=== PATIENT | male | born 1945 | race Hispanic/Latino ===

== ENCOUNTER → 2024-06-04 | Emergency (ER) | payer BC, MEDICARE ==
[~2024-06-04] VITALS: Ht 172.7 cm; Wt 86.2 kg
[~2024-06-04] MED LIST: ALBUTEROL 0.083% 2.5 MG/3 ML INH IH SCH; DOXYCYCLINE 100MG+NS 250ML IV SCH; ENOXAPARIN SODIUM 40 MG/0.4 ML SYRINGE SQ SCH; FAMOTIDINE 20MG VIAL IV SCH; INSULIN humuLIN R 100 UNIT/ML 3ML SQ SCH; IpraTROPium 0.5 MG/2.5 ML INH IH SCH; LACTULOSE 20 GM/30 ML UDCUP PO PRN; TEMAZepam 15 MG CAPSULE PO PRN; acetaMINOPHEN 325 MG TAB PO PRN; acetaMINOPHEN 650 MG SUPPOSITORY RC PRN; cefTRIAXone 1G VIAL IVP SCH; doCUSate SODIUM 100 MG CAP PO PRN; hydrALAZine 20MG/ML VIAL IV PRN; ondanSETRON 4MG INJ IVP PRN
[2024-06-04 16:50] VITALS: TEMP 98.3
--- NOTE | 2024-06-04 16:53 | ERN ---
ED Note History of Present Illness Stated Complaint: CHEST PAIN AND UPPER AIRWAY CONGESTION Chief Complaint: Chest Pain Time Seen by MD: 16:42 Dictation: PATIENT IS A 78-YEAR-OLD MALE COMING IN TODAY WITH COARSE BILATERAL BREATH SOUNDS AND SHORTNESS BREATH HE HAS HAD FOR 2-3 DAYS. NO FEVER NO CHILLS NO NAUSEA VOMITING. PATIENT STATES HE HAS A HISTORY OF CHF AND ATRIAL FIBRILLATION. DENIES ANY HISTORY OF STENTS OR BYPASS. Allergies: Coded Allergies: No Known Drug Allergies (Unverified Allergy, Unknown, 06/04/24) Past Medical History Past Medical History: A-Fib, CHF Surgical History: Other RN Note Reviewed/Agreed w/PFSH: Yes Review of System Dictation CONSTITUTIONAL: NEGATIVE EXCEPT FOR HPI HEAD/FACE: NEGATIVE EXCEPT FOR HPI EENT: NEGATIVE EXCEPT FOR HPI RESPIRATORY: NEGATIVE EXCEPT FOR HPI SOB GASTROINTESTINAL/ABDOMINAL: NEGATIVE EXCEPT FOR HPI GENITOURINARY: NEGATIVE EXCEPT FOR HPI MUSCULOSKELETAL: NEGATIVE EXCEPT FOR HPI INTEGUMENTARY: NEGATIVE EXCEPT FOR HPI NEUROLOGICAL/PSYCH: NEGATIVE EXCEPT FOR HPI HEMATOLOGIC/LYMPHATIC: NEGATIVE EXCEPT FOR HPI ALL SYSTEMS NEGATIVE, EXCEPT NOTED ABOVE. 13 POINT REVIEW OF SYSTEMS ASSESSED AND ALL NEGATIVE EXCEPT FOR ABOVE. Initial Vital Sign VS Vital Signs Date Time Temp Pulse Resp B/P (MAP) Pulse Ox O2 Delivery O2 Flow Rate FiO2 06/04/24 16:42 99.0 98 24 147/87 70 Room Air 0 06/04/24 17:10 60 Physical Exam Dictation VITAL SIGNS REVIEWED GENERAL APPEARANCE: ALERT, ORIENTED X 3, MODERATE ACUTE DISTRESS, WELL DEVELOPED, NOURISHED. HEAD AND FACE: NON-TRAUMATIC. EYES: PERRL, PINK CONJUNCTIVAS, EYELID NO TRAUMA, ANTERIOR CHAMBER WITH ARCUS SENILIS. EARS: PINNAS INTACT AND NO SIGNS OF TRAUMA OR ERYTHEMA EAR CANALS CLEAR AND NO DISCHARGE TM NO ERYTHEMA NOSE: NO DISCHARGE, NO BLEEDING. OROPHARYNX: MOUTH NORMAL, TONGUE PINK, PHARYNX CLEAR,NO ERYTHEMA, TONSILS NO EXUDATES, NO ABSCESSES NOTED, MUCOUS MEMBRANE MOIST NECK: SUPPLE, NON-TENDER, NO THYROMEGALY, NO MASSES, NO JVD, NO BRUITS BREAST:DEFERRED CHEST:NO TENDERNESS, NO CREPITUS, NO PARADOXICAL MOVEMENT, NO RETRACTIONS LUNGS: COARSE RALES NOTED TO BASES BILATERALLY NO WHEEZING. PATIENT TACHYPNEIC HEART: REGULAR RATE, REGULAR RHYTHM, NO MURMUR, NO GALLOPS VASCULAR: 3+ PERIPHERAL EDEMA LOWER EXTREMITIES TO KNEES. ABDOMEN: SOFT, POSITIVE BOWEL SOUNDS, NONDISTENDED, NO GUARDING, NONTENDER, NO REBOUND, NO MASSES NO HEPATOMEGALY, NO SPLENOMEGALY, NO OCAMPO'S SIGN, NO HERNIAS. RECTAL: DEFERRED GENITAL: DEFERRED NEUROLOGICAL: NORMAL SPEECH, MOTOR FUNCTION INTACT, SENSORY FUNCTION INTACT MUSCULOSKELETAL: NECK NONTENDER, FULL RANGE OF MOTION, BACK NONTENDER, FULL RANGE OF MOTION, EXTREMITIES: NONTENDER, FULL RANGE OF MOTION SKIN: COLOR PINK, DRY, NO TURGOR, NO RASH, NO LACERATIONS, NO ABRASIONS, NO CONTUSIONS. LYMPHATIC: DEFERRED Results (Laboratory/Radiology) Laboratory/Radiology Laboratory Tests Test 06/04/24 16:55 06/04/24 17:00 06/04/24 17:07 White Blood Count 9.6 K/uL (4.8-10.8) Red Blood Count 4.17 MIL/uL (4.50-6.20) L Hemoglobin 11.7 g/dL (14.0-18.0) L Hematocrit 37.1 % (42-54) L Mean Corpuscular Volume 89.0 fL (79-99) Mean Corpuscular Hemoglobin 28.1 pg (27.0-33.0) Mean Corpuscular Hemoglobin Concent 31.5 g/dL (32.0-36.0) L Red Cell Distribution Width 15.1 % (11.0-15.5) Platelet Count 177 K/uL (130-400) Mean Platelet Volume 11.7 fL (7.5-10.5) H Immature Granulocyte % (Auto) 0.5 % (0-1) Neutrophils (%) (Auto) 75.0 % (40.0-77.0) Lymphocytes (%) (Auto) 18.0 % (21.0-51.0) L Monocytes (%) (Auto) 6.3 % (3.0-13.0) Eosinophils (%) (Auto) 0.0 % (0.0-8.0) Basophils (%) (Auto) 0.2 % (0.0-5.0) Neutrophils # (Auto) 7.2 K/uL (1.8-7.7) Lymphocytes # (Auto) 1.7 K/uL (1.0-4.8) Monocytes # (Auto) 0.6 K/uL (0.1-1.0) Eosinophils # (Auto) 0.00 K/uL (0.00-0.70) Basophils # (Auto) 0.02 K/uL (0.00-0.20) Absolute Immature Granulocyte (auto 0.05 K/uL (0-1) Nucleated Red Blood Cells 0.0 % (0.0-0.19) Sodium Level 138 mmol/L (136-145) Potassium Level 3.9 mmol/L (3.5-5.1) Chloride Level 98 mmol/L (101-111) L Carbon Dioxide Level 28 mmol/L (21-32) Blood Urea Nitrogen 20 mg/dL (7-18) H Creatinine 1.6 mg/dL (0.5-1.3) H Glomerular Filtration Rate Calc 44 mL/min (>90) Random Glucose 216 mg/dL (70-105) H Lactic Acid Level 3.0 mmol/L (0.8-2.5) H Total Calcium 8.9 mg/dL (8.5-10.1) Magnesium Level 1.50 mg/dL (1.80-2.40) L Troponin I High Sensitivity 54 ng/L (4-75) B-Type Natriuretic Peptide 1570 pg/mL (0-100) H SARS-CoV-2 Antigen (Rapid) PRESUMPTIVE NEGATIVE Blood Gas Specimen Type Arterial Arterial Blood pH 7.373 (7.350-7.450) Arterial Blood Partial Pressure CO2 40 mmHg (35-48) Arterial Blood Partial Pressure O2 81.4 mmHg (83.0-108.0) L Arterial Blood HCO3 22.5 mmol/L (21.0-28.0) Arterial Blood Oxygen Saturation 95.2 % (94.0-98.0) Arterial Blood Base Excess -2.4 mmol/L (-2.0-3.0) L Hemoglobin (Blood Gas) 12.1 g/dL (13.5-17.5) L Sodium (Blood Gas) 134 MMOL/L (136-145) L Bedside Potassium (Blood Gas) 4.0 MMOL/L (3.4-4.5) Bedside Chloride (Blood Gas) 98 MMOL/L (98-107) Bedside Glucose (Blood Gas) 223 MG/DL (65-95) H Bedside Ionized Calcium (Blood Gas) 1.13 MMOL/L (1.15-1.33) L Bedside Lactic Acid (Blood Gas) 1.54 MMOL/L (0.36-0.75) H Blood Gas Temperature 37.0 CELSIUS (35.5-37.0) Blood Gas Respiration Rate 16.0 min. Blood Gas Vent Mode BIPAP 12,6 (ROOM AIR) FiO2 60.0 % Blood Gas Specimen Comment JOANN MALONERN Labs Reviewed?: Yes EKG Comment: EKG SINUS RHYTHM/HEART RATE 81/WV INTERVAL 225 MILLISECOND/RIGHT BUNDLE BRANCH BLOCK NONSPECIFIC ST CHANGES V1 V2 ED Course ED Course Orders Procedure Category Date Status Time Covid19 (Sars Antigen LAB 06/04/24 Complete Rapid) 16:48 Furosemide 100mg Vial PHA 06/04/24 Complete (Lasix 100mg Vial) 17:00 Cbc With Differential LAB 06/04/24 Complete 16:48 B-Type Natriuretic LAB 06/04/24 Complete Peptide 16:48 Chest 1vw RAD 06/04/24 Resulted 16:48 12 Lead Ekg Tracing- EKG 06/04/24 Logged Technical 16:48 Magnesium LAB 06/04/24 Complete 16:48 Troponin I High LAB 06/04/24 Complete Sensitivity 16:48 Basic Metabolic Panel LAB 06/04/24 Complete 16:48 Blood Cult CARLOS 06/04/24 In Process 16:55 Lactic Acid LAB 06/04/24 Complete 16:55 Arterial Blood Gas + RT 06/04/24 Transmitted 17:03 Arterial Blood Gas LAB 06/04/24 Complete Arterial + 17:07 Ceftriaxone 2gm Vial PHA 06/04/24 Complete (Rocephin 2gm Inj) 17:20 Azithromycin 500mg+Ns PHA 06/04/24 Complete 250ml (Azithromyci 17:20 Albuterol 0.083% PHA 06/04/24 Complete 2.5mg/3ml (Proventil 18:00 0.9% Nacl 500ml PHA 06/04/24 Complete Iv.Soln (Ns 500ml 18:00 Edm Admit Bridge Order ADM 06/04/24 Verified 18:19 Current Medications Medications (Trade) Dose Ordered Sig/Gail Route PRN Reason Start Time Stop Time Status Last Admin Dose Admin Albuterol Sulfate (Proventil 0.083% 2.5mg/3ml) 5 mg ONCE ONCE IH 06/04/24 18:00 06/04/24 18:01 DC Azithromycin 250 ml @ 250 mls/hr ONCE STAT IVPB 06/04/24 17:20 06/04/24 18:19 DC 06/04/24 17:27 Ceftriaxone Sodium (Rocephin 2gm Inj) 2 gm ONCE STAT IVPB 06/04/24 17:20 06/04/24 17:24 DC 06/04/24 17:27 Furosemide (LASix 100MG VIAL) 80 mg ONCE ONCE IVP 06/04/24 17:00 06/04/24 17:01 DC 06/04/24 16:57 Sodium Chloride 500 ml @ 0 mls/hr ONCE ONCE IV 06/04/24 18:00 06/04/24 18:01 DC Vital Signs Date Time Temp Pulse Resp B/P (MAP) Pulse Ox O2 Delivery O2 Flow Rate FiO2 06/04/24 17:10 98 27 60 06/04/24 16:42 99.0 98 24 147/87 70 Room Air 0 1800/SENT ON BIPAP. HEART RATE IS CONTROLLED. PATIENT'S RESPIRATIONS MARKEDLY IMPROVED AFTER TREATMENT WITH ANTIBIOTICS, LASIX AND ALBUTEROL. LACTIC ACID 3.0. NORMAL SALINE LIMITED TO 500 ML SECONDARY TO PATIENT IN CONGESTIVE HEART FAILURE BNP IS 15 40.\ \ 1820/SPOKE WITH [facility] HOSPITALIST REVIEWED CHEST X-RAY EKG LABS AND INTERVENTIONS FOR RESPIRATORY FAILURE TO INCLUDE BIPAP, ROCEPHIN/AZITHROMYCIN/ALBUTEROL FOR BILATERAL PNEUMONIA. HEART Score Response (Comments) Value Age: > 65yrs (+2) 2 Risk Factors: 1-2 risk factors (+1) 1 Initial Troponin: Normal limit (0) 0 Total 3 Medical Decision Making MDM MDM: DIFFERENTIAL DIAGNOSIS: PNEUMONIA/BRONCHITIS/CHF EXACERBATION/RENAL FAILURE RATIONALE: TESTS CONSIDERED AND ORDERED SECONDARY TO SHARED DECISION MAKING INCLUDE: LABS, ECG AND RADIOLOGY PREVIOUS OUTSIDE RECORDS REVIEWED: OLD ER VISITS. RISK OF COMPLICATION AND/OR MORBIDITY OR MORTALITY OF PATIENT MANAGEMENT: MODERATE MEDICATIONS-PER MEDICATION RECONCILIATION NEED FOR HOSPITALIZATION: PATIENT DOES MEET CRITERIA FOR HOSPITALIZATION. PATIENT WILL NEED RESPIRATORY SUPPORT, IV ANTIBIOTICS, CARDIAC CONSULTATION FOR ACUTE CHF EXACERBATION NEED FOR EMERGENCY MAJOR/MINOR SURGERY: NO THERE ARE NO SOCIAL CONCERNS WITH THIS PATIENT. PRESCRIPTION DRUG MANAGEMENT PRESCRIPTIONS WILL INCLUDE SYMPTOMATIC CARE PATIENT'S PRIOR EXTERNAL MEDICAL RECORDS FROM OTHER ER VISITS WERE REVIEWED BY ME INDICATED. PRIOR TESTING AND RESULTS FROM PREVIOUS VISITS WERE REVIEWED. PRIOR TESTS WERE TAKEN INTO ACCOUNT WITH MEDICAL DECISION MAKING AND RESOURCE UTILIZATION, INDEPENDENT HISTORIAN/HISTORIANS WERE USED TO OBTAIN COMPLETE MEDICAL HISTORY. I INDEPENDENTLY INTERPRETED THE TEST THAT WERE PERFORMED, RESULTS WERE REVIEWED BY ME AND CONSIDERED FINDINGS ON RADIOLOGY IF ORDERED. MEDICAL MANAGEMENT AND EXAMINATION INTERPRETATION DISCUSSIONS WERE HAD BY ME WITH OTHER QUALIFIED HEALTHCARE PROFESSIONALS INDICATED FOR THE PATIENT'S CARE. DX & DISP Disposition: Inpatient Decision to Admit Time: 18:10 Departure Impression: Primary Impression: Pneumonia of both lower lobes Additional Impressions: Acute kidney injury, Uncontrolled diabetes mellitus, Hypoxemia, Acute exacerbation of CHF (congestive heart failure), Sepsis, Hypomagnesemia Condition: Stable Time of Disposition: 18:10 I have reviewed the case, and I agree with, Diagnosis and Plan JAYLYN RIVERA NP Jun 04, 2024 16:52
[2024-06-04] MEDS: furoSEMIDE 100MG VIAL 10 MG/ML VIAL IVP ONE (16:57)
[2024-06-04 17:09] LABS: ABG BASE EXCESS -2.4 mmol/L (-2.0-3.0); ABG HCO3 22.5 mmol/L (21.0-28.0); ABG OXYGEN SATURATION 95.2 % (94.0-98.0); ABG PCO2 40 mmHg (35-48); ABG PH 7.373 (7.350-7.450); CARBON MONOXIDE 0.3 % (0.5-1.5); HHb 4.8; PO2, ARTERIAL BG 81.4 mmHg (83.0-108.0); VENT MODE, BG BIPAP 12,6 (ROOM AIR)
[2024-06-04 17:10] VITALS: PULSE 98; RESP 27; O2SAT 97
[2024-06-04 17:12] LABS: BASOPHILS # (AUTO) 0.02 K/uL (0.00-0.20); BASOPHILS % (AUTO) 0.2 % (0.0-5.0); HEMATOCRIT 37.1 % (42-54); IMMATURE GRANULOCYTE ABSOLUTE 0.05 K/uL (0-1); LYMPHOCYTES # (AUTO) 1.7 K/uL (1.0-4.8); MEAN CORPUSCULAR HEMOGLOBIN 28.1 pg (27.0-33.0); MEAN CORPUSCULAR HGB CONC 31.5 g/dL (32.0-36.0); MONOCYTES # (AUTO) 0.6 K/uL (0.1-1.0); MONOCYTES % (AUTO) 6.3 % (3.0-13.0); NEUTROPHILS # (AUTO) 7.2 K/uL (1.8-7.7); PLATELET COUNT (AUTO) 177 K/uL (130-400); RED BLOOD CELL COUNT(AUTO) 4.17 MIL/uL (4.50-6.20); RED CELL DISTRIBUTION WIDTH 15.1 % (11.0-15.5); WHITE BLOOD COUNT (AUTO) 9.6 K/uL (4.8-10.8)
[2024-06-04 17:22] LABS: CREATININE 1.6 mg/dL (0.5-1.3); MAGNESIUM 1.5 mg/dL (1.80-2.40); POTASSIUM 3.9 mmol/L (3.5-5.1)
[2024-06-04] MEDS: AZITHROMYCIN 500MG+NS 250ML 250 ML IVPB STA (17:27)
[2024-06-04] MEDS: CEFTRIAXONE 2GM VIAL IVPB STA (17:27)
--- NOTE | 2024-06-04 17:33 | HMCIMG ---
PORTABLE CHEST RADIOGRAPH INDICATION: SHORTNESS A BREATH COMPARISON: 04/14/2011 FINDINGS: Heart size is normal. The pulmonary vascularity and breezy appear normal. Bilateral lower lung opacities. No significant pleural effusion noted. No pneumothorax detected. IMPRESSION: Findings suggesting bilateral lower lung pneumonia. Follow-up chest radiograph is advised in order to ensure resolution.
[2024-06-04 17:40] LABS: B-TYPE NATRIURETIC PEPTIDE 1570 pg/mL (0-100)
[2024-06-04 18:45] VITALS: PULSE 69; RESP 29; O2SAT 98
[2024-06-04 18:47] VITALS: PULSE 69; RESP 29
[2024-06-04] MEDS: ALBUTEROL 0.083% 2.5 MG/3 ML INH IH ONE (18:47)
[2024-06-04] MEDS: 0.9% NACL 500ML IV.SOLN 500 ML IV ONE (18:49)
[2024-06-04 19:00] VITALS: BP 132/60; PULSE 72; RESP 16; O2SAT 98
--- NOTE | 2024-06-04 19:23 | HP ---
[facility] HISTORY AND PHYSICAL Date of Service: Jun 04, 2024 Time of Service: 19:23 HISTORY OF PRESENT ILLNESS: [ ] REVIEW OF SYSTEMS CONSTITUTIONAL: Denies fevers, chills, or night sweats. No unintentional weight loss reported. NEUROLOGICAL: Denies headache, amaurosis fugax, motor weakness, sensory deficit, vertigo/spinning sensation, gait abnormalities, or tremors. ENT: No hearing loss, otalgia, otorrhea, rhinitis, rhinorrhea, hoarseness, or sore throat. CARDIOVASCULAR: Denies any exertional angina, dyspnea on exertion, orthopnea, paroxysmal nocturnal dyspnea, palpitations, life-threatening arrhythmias, claudication. PULMONARY: Denies any shortness of breath, cough, phlegm/sputum, hemoptysis, pleuritic chest pain. SLEEP: Denies morning headaches, daytime somnolence or napping. Denies difficulty falling asleep, staying asleep, waking from sleep. Denies knowledge of snoring. GASTROINTESTINAL: Denies any type of dysphagia to either liquids or solids. Denies nausea, vomiting, pyrosis, early satiety, abdominal pain, diarrhea, constipation, or changes in stool consistency or caliber. Denies coffee-ground emesis, hematemesis, hematochezia, or melanotic stools. GENITOURINARY: Denies frequency, urgency, nocturia, hematuria or incontinence (Storage/Irritative symptoms.) Low urinary stream, straining to void, urinary intermittency or hesitancy, splitting of the voiding stream, terminal dribbling. ENDOCRINOLOGIC: Denies polyuria, polydipsia, polyphagia or heat/cold intolerances. HEMATOLOGIC: Denies thrombophilia/previous clots, or coagulopathy/bleeding disorders. ONCOLOGIC: Denies personal history of malignancy. DERMATOLOGIC: Denies rashes or pruritus. PSYCHIATRIC: Denies any suicidal or homicidal ideation. Denies hallucinations. PAST MEDICAL HISTORY: [ ] PAST SURGICAL HISTORY: [ ] PAST SOCIAL HISTORY: [ ] FAMILY HISTORY: [ ] Coded Allergies: No Known Drug Allergies (Unverified Allergy, Unknown, 06/04/24) PHYSICAL EXAM GENERAL APPEARANCE: The patient is awake, alert, and oriented, in no acute cardiopulmonary distress. NEUROLOGICAL: Cranial nerves II-XII grossly intact. Motor is 5/5 in bilateral upper and lower extremities proximal to distal. No sensory deficits. HEENT: Face is symmetric. Pupils are equal and reactive. Extraocular movements are intact. NECK: Supple. No JVD. No thyromegaly. No submental, submandibular, pre- /postauricular, occipital or supraclavicular lymphadenopathy. CHEST: Normal chest expansion. No Telemetry. LUNGS: Absence of any rales, rhonchi or any wheezing. CARDIOVASCULAR: Regular. S1 and S2 normal. No appreciable rubs, murmurs or gallops. ABDOMEN: Soft, nontender, and nondistended. There is no rebound, voluntary guarding, or rigidity. : Deferred. No Petty. EXTREMITIES: Non-edematous and not cyanotic. No clubbing. Good capillary r efill. SKIN: No skin breakdown. Vital Sign (Last 24 Hours) 06/04/24 06/04/24 06/04/24 16:50 18:45 18:47 Temp 98.2 Pulse 69 Resp 29 B/P (MAP) 140/60 Pulse Ox 98 O2 Delivery Room Air* O2 Flow Rate 0 FiO2 50 LABS: Laboratory: Test 06/04/24 17:07 06/04/24 17:00 06/04/24 16:55 Range/Units Blood Gas Specimen Type Arterial Arterial Blood pH 7.373 7.350-7.450 Arterial Blood Partial Pressure CO2 40 35-48 mmHg Arterial Blood Partial Pressure O2 81.4 L 83.0-108.0 mmHg Arterial Blood HCO3 22.5 21.0-28.0 mmol/L Arterial Blood Oxygen Saturation 95.2 94.0-98.0 % Arterial Blood Base Excess -2.4 L -2.0-3.0 mmol/L Hemoglobin (Blood Gas) 12.1 L 13.5-17.5 g/dL Sodium (Blood Gas) 134 L 136-145 MMOL/L Bedside Potassium (Blood Gas) 4.0 3.4-4.5 MMOL/L Bedside Chloride (Blood Gas) 98 98-107 MMOL/L Bedside Glucose (Blood Gas) 223 H 65-95 MG/DL Bedside Ionized Calcium (Blood Gas) 1.13 L 1.15-1.33 MMOL/L Bedside Lactic Acid (Blood Gas) 1.54 H 0.36-0.75 MMOL/L Blood Gas Temperature 37.0 35.5-37.0 CELSIUS Blood Gas Respiration Rate 16.0 min. Blood Gas Vent Mode BIPAP 12,6 ROOM AIR FiO2 60.0 % Blood Gas Specimen Comment RR, JOANN,RN SARS-CoV-2 Antigen (Rapid) PRESUMPTIVE NEGATIVE NEGATIVE White Blood Count 9.6 4.8-10.8 K/uL Red Blood Count 4.17 L 4.50-6.20 MIL/uL Hemoglobin 11.7 L 14.0-18.0 g/dL Hematocrit 37.1 L 42-54 % Mean Corpuscular Volume 89.0 79-99 fL Mean Corpuscular Hemoglobin 28.1 27.0-33.0 pg Mean Corpuscular Hemoglobin Concent 31.5 L 32.0-36.0 g/dL Red Cell Distribution Width 15.1 11.0-15.5 % Platelet Count 177 130-400 K/uL Mean Platelet Volume 11.7 H 7.5-10.5 fL Immature Granulocyte % (Auto) 0.5 0-1 % Neutrophils (%) (Auto) 75.0 40.0-77.0 % Lymphocytes (%) (Auto) 18.0 L 21.0-51.0 % Monocytes (%) (Auto) 6.3 3.0-13.0 % Eosinophils (%) (Auto) 0.0 0.0-8.0 % Basophils (%) (Auto) 0.2 0.0-5.0 % Neutrophils # (Auto) 7.2 1.8-7.7 K/uL Lymphocytes # (Auto) 1.7 1.0-4.8 K/uL Monocytes # (Auto) 0.6 0.1-1.0 K/uL Eosinophils # (Auto) 0.00 0.00-0.70 K/uL Basophils # (Auto) 0.02 0.00-0.20 K/uL Absolute Immature Granulocyte (auto 0.05 0-1 K/uL Nucleated Red Blood Cells 0.0 0.0-0.19 % Sodium Level 138 136-145 mmol/L Potassium Level 3.9 3.5-5.1 mmol/L Chloride Level 98 L 101-111 mmol/L Carbon Dioxide Level 28 21-32 mmol/L Blood Urea Nitrogen 20 H 7-18 mg/dL Creatinine 1.6 H 0.5-1.3 mg/dL Glomerular Filtration Rate Calc 44 >90 mL/min Random Glucose 216 H 70-105 mg/dL Lactic Acid Level 3.0 H 0.8-2.5 mmol/L Total Calcium 8.9 8.5-10.1 mg/dL Magnesium Level 1.50 L 1.80-2.40 mg/dL Troponin I High Sensitivity 54 4-75 ng/L B-Type Natriuretic Peptide 1570 H 0-100 pg/mL Current Medications Medications (Trade) Dose Ordered Sig/Gail Route PRN Reason Start Time Stop Time Status Last Admin Dose Admin Azithromycin 250 ml @ 250 mls/hr ONCE STAT IVPB 06/04/24 17:20 06/04/24 18:19 DC 06/04/24 17:27 250 MLS/HR Ceftriaxone Sodium (Rocephin 2gm Inj) 2 gm ONCE STAT IVPB 06/04/24 17:20 06/04/24 17:24 DC 06/04/24 17:27 2 GM DIAGNOSTICS / RADIOLOGY: [ ] ASSESSMENT: [ ] PLAN: [ ] CLAUDIO MELGAR [facility] Jun 04, 2024 19:23
--- NOTE | 2024-06-05 04:42 | EKG ---
[facility] Test Date: 2024-06-04 Test Time: 17:00:15 Pat Name: JARET SWAN Department: EDH Room: ED Gender: Male Printer Machine: [id number] Requested By: JAYLYN RIVERA Order Number: [id number] Reading MD: Measurements Intervals Malone Rate: 81 P: 43 DE: 225 QRS: -46 QRSD: 145 T: 0 QT: 419 QTc: 486 Interpretive Statements Sinus rhythm Prolonged DE interval Right bundle branch block Anterior infarct, age indeterminate No previous ECG available for comparison Please click the below link to view image of tracing.
== END ==
LOC: EDH 16:40 → EDHIP 18:23 → UNDOADMIN 18:23
DX: A41.9 Sepsis, unspecified organism (principal); J18.9 Pneumonia, unspecified organism; N17.9 Acute kidney failure, unspecified; E11.65 Type 2 diabetes mellitus with hyperglycemia; R09.02 Hypoxemia; I50.9 Heart failure, unspecified; E83.42 Hypomagnesemia; I48.91 Unspecified atrial fibrillation; Z20.822 Contact with and (suspected) exposure to COVID-19
CPT/HCPCS: 99285; 96365; 71045; 96366; 96375; 87426; 82947; 82435; 83735; 84484; 84132; 84295; 80048; 82803; 83880; 85025; 85018; 87040 ×2; 83605 ×2; 36415; 96368; 93005; J0696; J1940; J0456; 36600; 94640; 94660; G0378